=== PATIENT | female | born 1965 | race Caucasian/White ===

== ENCOUNTER → 2017-01-28 | Outpatient (CLI) | payer BC, OTHER ==
[~2017-01-28] MED LIST: AGM875 PO; IBUP-1459 PO; MOME50SP5; MULT-506 PO; digestive enzymes PO
--- NOTE | 2017-01-28 08:50 | DIAGNOSTIC IMAGING REPORT ---
RIGHT FOOT 3 VIEWS HISTORY: RIGHT HEEL PAIN Right COMPARISON: None. FINDINGS: There is no fracture or dislocation. Soft tissues are unremarkable. No radiopaque foreign bodies. There is a skin marker along the plantar surface of the heel. Evaluation for soft tissue abnormalities limited by the plain film technique. Focal small bony protrusion at the plantar surface of the heel is considered to be within the range of normal limits. IMPRESSION: No significant abnormality within the right foot by conventional radiographic technique. MRI can be performed for further evaluation if clinically warranted. Electronically signed by: Jaswant Escalante M.D. 01/28/2017 8:48 AM Dictated Date/Time: 01/28/2017 8:46 AM
== END | disposition home or self-care (01) ==
LOC: C.RDSM 08:29
PROVIDERS: ATTEND Podiatrist
DX: M79.671 Pain in right foot (principal)